=== PATIENT | female | born 1970 | race Caucasian/White ===

== ENCOUNTER 2021-01-14 14:32 | Emergency (ER) | payer OTHER ==
[~2021-01-14] VITALS: Ht 172.7 cm; Wt 84.1 kg
[2021-01-14] MEDS: NACL 0.9% 1,000 ML IV ONE (14:49)
[2021-01-14 14:52] VITALS: BP 86/47
--- NOTE | 2021-01-14 15:00 | NUR ---
Note undone in EDM - 01/14/21 at 1501 by [email or web address] 50 Y FEMALE BIBA FROM HOME DUE TO LIGHTHEADESS, DIZZINESS, AND GENERAL WEAKNESS. PT STATED SHE WAS SITTING WHEN SHE STARTED TO EXPERINCE DIZZINESS AND "STARTED TO BLACK OUT." PT ADMITS TO FASTING SINCE 12 PM TODAY. PT ALSO STATED SHE HAS MINOR MID-CHEST PAIN THAT IS NON-RADIATING AND CURRENTLY 05/25. PT CURRENTLY HYPOTENSIVE WITH BP AT 86/47, BUT PT STATED SHE STARTED A NEW BP MEDICATION X1 WEEK AGO. BREATH SOUNDS CLEAR, PT A&OX4, RESPIRATIONS EVEN AND UNLABORED. PMH: HTN, ANXIETY NKA
--- NOTE | 2021-01-14 15:01 | NUR ---
50 Y FEMALE BIBA FROM HOME DUE TO LIGHTHEADESS, DIZZINESS, AND GENERAL WEAKNESS. PT STATED SHE WAS SITTING WHEN SHE STARTED TO EXPERINCE DIZZINESS AND "STARTED TO BLACK OUT." PT ADMITS TO FASTING SINCE 12 PM TODAY. PT ALSO STATED SHE HAS MINOR MID-CHEST PAIN THAT IS NON-RADIATING AND CURRENTLY 3/10. PT CURRENTLY HYPOTENSIVE WITH BP AT 86/47, BUT PT STATED SHE STARTED A NEW BP MEDICATION X1 WEEK AGO. BREATH SOUNDS CLEAR, PT A&OX4, RESPIRATIONS EVEN AND UNLABORED. PMH: HTN, ANXIETY ALLERGIES: SEE LIST
[2021-01-14] MEDS ORDERED: SERT100T PO (15:04)
[2021-01-14] MEDS ORDERED: BUS5 PO (15:04)
[2021-01-14] MEDS ORDERED: LOSA100T1 PO (15:04)
[2021-01-14 15:28] LABS: BASOPHILS % (AUTO) 0.6 % (0.0-2.0); EOSINOPHILS # (AUTO) 0.1 K/uL (0-0.4); HEMATOCRIT 31.5 % (36-48); HEMOGLOBIN 10.3 g/dL (12.0-16.0); LYMPHOCYTES # (AUTO) 1.7 K/uL (2.5-16.5); LYMPHOCYTES % (AUTO) 25.3 % (20.5-51.1); MEAN CORPUSCULAR HEMOGLOBIN 32 pg (27-31); MEAN CORPUSCULAR HGB CONC 33 g/dL (33-37); MEAN CORPUSCULAR VOLUME 96.6 fL (80-94); MONOCYTES # (AUTO) 0.5 K/uL (0.8-1.0); MONOCYTES % (AUTO) 7.3 % (1.7-9.3); NEUTROPHILS # (AUTO) 4.5 K/uL (1.8-7.7); NEUTROPHILS % (AUTO) 65.8 % (42.2-75.2); PLATELET COUNT (AUTO) 271 K/uL (140-450); RED BLOOD CELL COUNT(AUTO) 3.26 MIL/uL (4.20-5.40); RED CELL DISTRIBUTION WIDTH 15.6 % (11.6-13.7); WHITE BLOOD COUNT (AUTO) 6.8 K/uL (4.8-10.8)
--- NOTE | 2021-01-14 15:33 | NUR ---
XRAY BEDSIDE WITH PATIENT
[2021-01-14 15:47] LABS: ALBUMIN 3.2 g/dL (3.4-5.0); ANION GAP 17.8 (8-16); CREATININE 1.3 mg/dL (0.6-1.3); POTASSIUM 3.8 mmol/L (3.5-5.1)
[2021-01-14 16:09] LABS: TOTAL BILIRUBIN 0.3 mg/dL (0.0-1.0)
[2021-01-14] MEDS: NACL 0.9% 500 ML IV ONE (17:01)
--- NOTE | 2021-01-14 17:10 | NUR ---
PT AMBULATED TO AND FROM RESTROOM. GAIT STEADY. PT DENIED ANY LIGHTHEADED/DIZZINESS AT THE TIME.
--- NOTE | 2021-01-14 17:36 | NUR ---
PT ESSIE BEDSIDE CURRENTLY WITH PATIENT
[2021-01-14 18:30] VITALS: BP 117/73
--- NOTE | 2021-01-14 18:30 | NUR ---
Patient discharged with v/s stable. Written and verbal after care instructions given and explained. Patient verbalized understanding. Ambulatory with steady gait. All questions addressed prior to discharge. Advised to follow up with PMD.
== END 2021-01-14 18:30 | disposition home or self-care (01) ==
LOC: MED 14:32
DX: R53.1 Weakness (principal); E86.0 Dehydration; R11.2 Nausea with vomiting, unspecified; R07.9 Chest pain, unspecified
CPT/HCPCS: 36415; 71045; 80053; 83880; 84484; 85025; 93005; 96360; 96361; 99285; Q0092; J7030